=== PATIENT | male | born 1940 | race Caucasian/White ===

== ENCOUNTER 2017-05-03 16:36 | Emergency (ER) | payer OTHER ==
[~2017-05-03] VITALS: Ht 167.6 cm; Wt 81.7 kg
[~2017-05-03 16:36] MED LIST: ASPI81CH PO; CHOL10002 PO; DIVA500EC PO; Hydrocodone-Ap1 EA23 PO; INSUAS7030 SC; LEVFLO500 PO; LOSHYD PO; MEMA10 PO; METF500 PO; METO25ER PO; METPRE4DP PO; PARO10 PO; Percocet 5-3251 EACH PO; Simvastatin80 MG PO
[2017-05-03 17:09] LABS: BASOPHILS ABSOLUTE AUTO 0.04 K/mm3 (0.00-0.23); BASOPHILS PERCENT AUTO 0 % (0-2); EOSINOPHILS ABSOLUTE AUTO 0.04 K/mm3 (0.00-0.68); EOSINOPHILS PERCENT AUTO 0 % (0-6); Hematocrit 43.3 % (37.0-53.0); Hemoglobin 14.8 g/dL (13.5-17.5); IMMATURE GRAN ABSOLUTE AUTO 0.04 K/mm3 (0.00-0.10); IMMATURE GRAN PERCENT AUTO 0 % (0-1); LYMPHOCYTES ABSOLUTE AUTO 1.85 K/mm3 (0.84-5.20); LYMPHOCYTES PERCENT AUTO 16 % (21-46); MONOCYTES ABSOLUTE AUTO 1.16 K/mm3 (0.16-1.47); MONOCYTES PERCENT AUTO 10 % (4-13); Mean Corpuscular HGB 29.7 pg (26.0-34.0); Mean Corpuscular HGB Conc 34.2 g/dL (31.5-36.5); Mean Corpuscular Volume 87 fL (80-100); Mean Platelet Volume 11.7 fL (9.1-12.4); NEUTROPHILS ABSOLUTE AUTO 8.13 K/mm3 (1.96-9.15); NEUTROPHILS PERCENT AUTO 72 % (41-73); Platelet Count 184 K/mm3 (150-400); RDW Standard Deviation 38.2 fL (35.1-46.3); Red Blood Cell Count 4.98 M/mm3 (4.30-5.90); White Blood Cell Count 11.26 K/mm3 (4.00-11.30)
[2017-05-03 17:19] LABS: Alanine Aminotransfer (ALT/SGP 33 U/L (12-78); Albumin, Blood 4.2 g/dL (3.4-5.0); Alk Phos 132 U/L (50-136); Anion Gap 10 mmol/L (6-16); Aspartate Aminotrans (AST/SGOT 28 U/L (12-37); Bilirubin, Total 0.7 mg/dL (0.1-1.0); Blood Urea Nitrogen 29 mg/dL (8-24); Bun/Creatinine Ratio 24.4 (12.0-20.0); CO2, Blood 28 mmol/L (21-32); Calcium, Blood 10.2 mg/dL (8.5-10.1); Chloride, Blood 97 mmol/L (98-108); Creatinine, Blood 1.19 mg/dL (0.60-1.20); Ethanol (Alcohol), Blood, Med <3 mg/dL; Glomerular Filtration Rate >60 (60-); Glucose, Blood 424 mg/dL (70-99); Potassium, Blood 4.6 mmol/L (3.5-5.5); Sodium, Blood 135 mmol/L (136-145); Total Protein, Blood 8.2 g/dL (6.4-8.2)
[2017-05-03 17:20] LABS: International Normalized Ratio 1.05; Prothrombin Time Results 10.9 Sec (9.7-11.5)
[2017-05-03] MEDS ORDERED: GABA300 PO (17:45)
[2017-05-03] MEDS ORDERED: OLAN5 PO (17:46)
[2017-05-03] MEDS ORDERED: Omeprazole20 M1 (17:46)
== END 2017-05-03 20:03 | disposition home or self-care (01) ==
LOC: ER 16:36
PROVIDERS: Emergency Medicine
DX: S01.81XA Laceration without foreign body of other part of head, initial encounter (principal); G40.909 Epilepsy, unspecified, not intractable, without status epilepticus; F03.90 Unspecified dementia, unspecified severity, without behavioral disturbance, psychotic disturbance, mood disturbance, and anxiety; M54.2 Cervicalgia; M54.6 Pain in thoracic spine; E11.9 Type 2 diabetes mellitus without complications; Z88.8 Allergy status to other drugs, medicaments and biological substances; Z88.5 Allergy status to narcotic agent; Z88.7 Allergy status to serum and vaccine; Z79.899 Other long term (current) drug therapy; Z79.82 Long term (current) use of aspirin; Z79.4 Long term (current) use of insulin; Z87.891 Personal history of nicotine dependence; V43.62XA Car passenger injured in collision with other type car in traffic accident, initial encounter
CPT/HCPCS: 12011; 70450; 71260; 72125; 74177; 80053; 82947; 85025; 85610; 85730; 86850; 86900; 86901; 93005; 93010; 96360; 96361; 99284; G0480; J1815; J7030; Q9967

== ENCOUNTER 2017-05-05 02:02 | Observation (INO) | payer OTHER ==
[~2017-05-05] VITALS: Ht 167.6 cm; Wt 76.5 kg
[~2017-05-05 02:02] MED LIST changes: +GABA300 PO; +OLAN5 PO; +Omeprazole20 M1
[2017-05-05 02:15] LABS: BASOPHILS ABSOLUTE AUTO 0.02 K/mm3 (0.00-0.23); BASOPHILS PERCENT AUTO 0 % (0-2); EOSINOPHILS ABSOLUTE AUTO 0.11 K/mm3 (0.00-0.68); EOSINOPHILS PERCENT AUTO 1 % (0-6); Hematocrit 42.6 % (37.0-53.0); Hemoglobin 14.3 g/dL (13.5-17.5); IMMATURE GRAN ABSOLUTE AUTO 0.03 K/mm3 (0.00-0.10); IMMATURE GRAN PERCENT AUTO 0 % (0-1); LYMPHOCYTES ABSOLUTE AUTO 1.74 K/mm3 (0.84-5.20); LYMPHOCYTES PERCENT AUTO 22 % (21-46); MONOCYTES ABSOLUTE AUTO 0.96 K/mm3 (0.16-1.47); MONOCYTES PERCENT AUTO 12 % (4-13); Mean Corpuscular HGB 30.2 pg (26.0-34.0); Mean Corpuscular HGB Conc 33.6 g/dL (31.5-36.5); Mean Platelet Volume 11.6 fL (9.1-12.4); NEUTROPHILS ABSOLUTE AUTO 5.01 K/mm3 (1.96-9.15); NEUTROPHILS PERCENT AUTO 64 % (41-73); Platelet Count 152 K/mm3 (150-400); RDW Coefficient Variation 12.1 % (11.7-14.2); RDW Standard Deviation 39.5 fL (35.1-46.3); Red Blood Cell Count 4.74 M/mm3 (4.30-5.90); White Blood Cell Count 7.87 K/mm3 (4.00-11.30)
[2017-05-05 02:19] LABS: Mean Corpuscular Volume 90 fL (80-100)
[2017-05-05 02:29] LABS: PCO2 Arterial 44.1 mmHg (35-45); PO2 Arterial 59.2 mmHg (80-100); pH Blood Arterial 7.39 (7.35-7.45)
[2017-05-05 02:38] LABS: Alanine Aminotransfer (ALT/SGP 34 U/L (12-78); Albumin, Blood 3.5 g/dL (3.4-5.0); Alk Phos 101 U/L (50-136); Anion Gap 6 mmol/L (6-16); Aspartate Aminotrans (AST/SGOT 28 U/L (12-37); Bilirubin, Total 0.3 mg/dL (0.1-1.0); Blood Urea Nitrogen 41 mg/dL (8-24); Bun/Creatinine Ratio 28.9 (12.0-20.0); CO2, Blood 28 mmol/L (21-32); Calcium, Blood 9.1 mg/dL (8.5-10.1); Chloride, Blood 102 mmol/L (98-108); Creatinine, Blood 1.42 mg/dL (0.60-1.20); Ethanol (Alcohol), Blood, Med <3 mg/dL; Globulin, Blood 3.5 g/dL (2.2-4.0); Glomerular Filtration Rate 52 (60-); Glucose, Blood 358 mg/dL (70-99); Salicylate 2.5 mg/dL (2.8-20.0); Sodium, Blood 136 mmol/L (136-145)
[2017-05-05 02:39] LABS: Acetaminophen, Random <2.0 ug/mL (10.0-30.0)
[2017-05-05 02:41] LABS: Thyroid Stimulating Hormone 0.846 uIU/mL (0.360-4.800)
[2017-05-05] MEDS ORDERED: ASPI325 PO (04:18)
[2017-05-05] MEDS ORDERED: DIPH50 PO (04:19)
[2017-05-05] MEDS ORDERED: CHOL10002 PO (04:19)
[2017-05-05] MEDS ORDERED: GABA300 PO (04:20)
[2017-05-05] MEDS ORDERED: LOSARTAN-HCTZ1 EACH PO (04:21)
[2017-05-05] MEDS ORDERED: Lopressor 25 mg25 MG PO (04:22)
[2017-05-05] MEDS ORDERED: MEMA10 PO (04:22)
[2017-05-05] MEDS ORDERED: LIDO700A20 TOP (04:22)
[2017-05-05] MEDS ORDERED: METF500 PO (04:23)
[2017-05-05] MEDS ORDERED: NAPR550 PO (04:23)
[2017-05-05] MEDS ORDERED: OLAN5 PO (04:24)
[2017-05-05] MEDS ORDERED: Omeprazole20 M1 PO (04:24)
[2017-05-05] MEDS ORDERED: PARO20 PO (04:25)
[2017-05-05] MEDS ORDERED: [UNRECOGNIZED DRUG - OTHER] (04:26)
[2017-05-05] MEDS ORDERED: MENTHOL (04:26)
[2017-05-05] MEDS ORDERED: SIMV40 PO (04:27)
[2017-05-05] MEDS ORDERED: LEVE500 PO (04:28)
[2017-05-05 04:38] LABS: Source, Urine Clean Catch
[2017-05-05 04:44] LABS: Bilirubin, Urine Neg (Neg); Blood, Urine Neg (Neg); Glucose Qualitative, Urine 4+ (Neg); Ketones, Urine Neg (Neg); Leukocyte Esterase, Urine Neg (Neg); Nitrite, Urine Neg (Neg); Protein, Urine Neg (Neg); Specific Gravity, Urine 1.015 (1.003-1.022); Urobilinogen, Urine NORM (Normal)
[2017-05-05 04:46] LABS: Appearance, Urine Clear (Clear); Color, Urine Yellow (P-Yellow)
[2017-05-05 04:55] LABS: U Amphetamine Screen Not Detected; U Barbituate Screen Not Detected; U Benzodiazapine Screen Not Detected; U Buprenorphine Screen Not Detected; U Cannabinoids Screen Not Detected; U Cocaine Screen Not Detected; U Methadone Screen Not Detected; U Methamphetamine Screen Not Detected; U Opiates Screen DETECTED; U Oxycodone Screen Not Detected; U Phencyclidine Screen Not Detected; U Propoxyphene Screen Not Detected
[2017-05-05] MEDS ORDERED: Humulin N100 UNIT/1 SC (04:59)
[2017-05-06 06:02] LABS: BASOPHILS ABSOLUTE AUTO 0.02 K/mm3 (0.00-0.23); BASOPHILS PERCENT AUTO 0 % (0-2); EOSINOPHILS ABSOLUTE AUTO 0.09 K/mm3 (0.00-0.68); EOSINOPHILS PERCENT AUTO 1 % (0-6); Hematocrit 43.7 % (37.0-53.0); IMMATURE GRAN ABSOLUTE AUTO 0.03 K/mm3 (0.00-0.10); IMMATURE GRAN PERCENT AUTO 1 % (0-1); LYMPHOCYTES ABSOLUTE AUTO 1.78 K/mm3 (0.84-5.20); LYMPHOCYTES PERCENT AUTO 28 % (21-46); MONOCYTES ABSOLUTE AUTO 0.75 K/mm3 (0.16-1.47); MONOCYTES PERCENT AUTO 12 % (4-13); Mean Corpuscular HGB 30.2 pg (26.0-34.0); Mean Corpuscular HGB Conc 34.3 g/dL (31.5-36.5); Mean Corpuscular Volume 88 fL (80-100); Mean Platelet Volume 11.6 fL (9.1-12.4); NEUTROPHILS ABSOLUTE AUTO 3.75 K/mm3 (1.96-9.15); NEUTROPHILS PERCENT AUTO 58 % (41-73); Platelet Count 167 K/mm3 (150-400); RDW Coefficient Variation 12.1 % (11.7-14.2); RDW Standard Deviation 38.5 fL (35.1-46.3); Red Blood Cell Count 4.96 M/mm3 (4.30-5.90); White Blood Cell Count 6.42 K/mm3 (4.00-11.30)
[2017-05-06 06:31] LABS: Alanine Aminotransfer (ALT/SGP 33 U/L (12-78); Albumin, Blood 3.5 g/dL (3.4-5.0); Albumin/Globulin Ratio 0.9 (0.8-1.8); Alk Phos 82 U/L (50-136); Anion Gap 8 mmol/L (6-16); Aspartate Aminotrans (AST/SGOT 24 U/L (12-37); Bilirubin, Total 0.4 mg/dL (0.1-1.0); Blood Urea Nitrogen 31 mg/dL (8-24); Bun/Creatinine Ratio 29.8 (12.0-20.0); CHOL/HDL RATIO 4.7; CO2, Blood 25 mmol/L (21-32); Calcium, Blood 9.2 mg/dL (8.5-10.1); Chloride, Blood 104 mmol/L (98-108); Cholesterol 127 mg/dL (50-200); Creatinine, Blood 1.04 mg/dL (0.60-1.20); Globulin, Blood 3.7 g/dL (2.2-4.0); Glomerular Filtration Rate >60 (60-); Glucose, Blood 216 mg/dL (70-99); HDL Cholesterol 27 mg/dL (>39); LDL/HDL RATIO Unable to Calculate; Low Density Lipoprotein Chol Unable to Calculate mg/dL (0-110); Sodium, Blood 137 mmol/L (136-145); Total Protein, Blood 7.2 g/dL (6.4-8.2); Triglycerides 421 mg/dL (30-160); Very Low Density Lipoprot Chol Unable to Calculate mg/dL (6-32)
== END 2017-05-07 18:40 | disposition still patient (30) ==
LOC: ER 02:02 → PCU 02:03 → MEDS 02:03 → PCU 04:30 → MEDS 04:30 → ER 04:30 → PCU 04:40 → MEDS 15:47 → PCU 15:47 → MEDS 15:47
PROVIDERS: Emergency Medicine; Internal Medicine
DX: F03.90 Unspecified dementia, unspecified severity, without behavioral disturbance, psychotic disturbance, mood disturbance, and anxiety (principal); N17.9 Acute kidney failure, unspecified; I10 Essential (primary) hypertension; G93.40 Encephalopathy, unspecified; E11.9 Type 2 diabetes mellitus without complications; E86.0 Dehydration; F43.10 Post-traumatic stress disorder, unspecified; M79.7 Fibromyalgia; G40.909 Epilepsy, unspecified, not intractable, without status epilepticus; F91.8 Other conduct disorders; Z79.82 Long term (current) use of aspirin; Z87.442 Personal history of urinary calculi; Z79.899 Other long term (current) drug therapy; Z88.5 Allergy status to narcotic agent; Z88.8 Allergy status to other drugs, medicaments and biological substances; Z88.7 Allergy status to serum and vaccine; Z87.891 Personal history of nicotine dependence
CPT/HCPCS: 36415; 36600; 70450; 72125; 80053; 80061; 80177; 81003; 82607; 82746; 82803; 82947; 84443; 85025; 86592; 93005; 93010; 96372; 97165; 97530; 99285; G0378; G0480; G8987; G8988; G8989; J1650; J1815; J7030

== ENCOUNTER 2017-05-07 18:08 | Observation (INO) | payer OTHER ==
[~2017-05-07] VITALS: Ht 167.6 cm; Wt 81.7 kg
[~2017-05-07 18:08] MED LIST changes: +ASPI325 PO; +DIPH50 PO; +Humulin N100 UNIT/1 SC; +LEVE500 PO; +LIDO700A20 TOP; +LOSARTAN-HCTZ1 EACH PO; +Lopressor 25 mg25 MG PO; +MENTHOL; +NAPR550 PO; +Omeprazole20 M1 PO; +PARO20 PO; +SIMV40 PO; +[UNRECOGNIZED DRUG - OTHER]
== END 2017-05-09 12:29 | disposition home or self-care (01) ==
LOC: ER 18:08 → EOR 18:09
DX: G93.41 Metabolic encephalopathy (principal); F03.90 Unspecified dementia, unspecified severity, without behavioral disturbance, psychotic disturbance, mood disturbance, and anxiety; F43.10 Post-traumatic stress disorder, unspecified; F41.9 Anxiety disorder, unspecified; G40.909 Epilepsy, unspecified, not intractable, without status epilepticus; I10 Essential (primary) hypertension; E11.40 Type 2 diabetes mellitus with diabetic neuropathy, unspecified; E78.5 Hyperlipidemia, unspecified; Z79.82 Long term (current) use of aspirin; Z79.899 Other long term (current) drug therapy; Z79.2 Long term (current) use of antibiotics
CPT/HCPCS: 99285; G0378; J1815; Q0163

== ENCOUNTER 2020-04-19 13:08 | Emergency (ER) | payer OTHER ==
[~2020-04-19] VITALS: Ht 167.6 cm; Wt 77.1 kg
== END 2020-04-19 13:55 | disposition home or self-care (01) ==
LOC: ER 13:08
DX: E11.649 Type 2 diabetes mellitus with hypoglycemia without coma (principal); I10 Essential (primary) hypertension; Z79.82 Long term (current) use of aspirin; Z79.899 Other long term (current) drug therapy; Z79.84 Long term (current) use of oral hypoglycemic drugs; Z88.5 Allergy status to narcotic agent; Z88.8 Allergy status to other drugs, medicaments and biological substances; Z88.7 Allergy status to serum and vaccine; Z87.442 Personal history of urinary calculi; Z87.891 Personal history of nicotine dependence
CPT/HCPCS: 82947; 99283

== ENCOUNTER 2020-05-21 12:43 | Emergency (ER) | payer OTHER ==
[~2020-05-21] VITALS: Ht 162.6 cm; Wt 77.1 kg
[2020-05-21] MEDS ORDERED: AMOCLA875 PO (13:06)
== END 2020-05-21 13:25 | disposition home or self-care (01) ==
LOC: ER 12:43
DX: S61.250A Open bite of right index finger without damage to nail, initial encounter (principal); L08.9 Local infection of the skin and subcutaneous tissue, unspecified; Z79.82 Long term (current) use of aspirin; Z79.84 Long term (current) use of oral hypoglycemic drugs; Z79.899 Other long term (current) drug therapy; W55.01XA Bitten by cat, initial encounter
CPT/HCPCS: 99283; A9270

== ENCOUNTER 2020-05-25 13:12 | Emergency (ER) | payer OTHER ==
[~2020-05-25] VITALS: Ht 165.1 cm; Wt 77.1 kg
[~2020-05-25 13:12] MED LIST changes: +AMOCLA875 PO
[2020-05-25] MEDS ORDERED: Monodox100 MG PO (15:28)
== END 2020-05-25 15:35 | disposition home or self-care (01) ==
LOC: ER 13:12
DX: S61.250A Open bite of right index finger without damage to nail, initial encounter (principal); L08.9 Local infection of the skin and subcutaneous tissue, unspecified; E11.9 Type 2 diabetes mellitus without complications; I10 Essential (primary) hypertension; G40.909 Epilepsy, unspecified, not intractable, without status epilepticus; Z88.5 Allergy status to narcotic agent; Z88.7 Allergy status to serum and vaccine; Z79.899 Other long term (current) drug therapy; Z79.82 Long term (current) use of aspirin; Z87.891 Personal history of nicotine dependence; W55.01XA Bitten by cat, initial encounter
CPT/HCPCS: 73140; 87070; 87075; 87205; 99282-25

== ENCOUNTER 2021-08-13 11:07 | Inpatient (IN) | payer OTHER ==
[~2021-08-13] VITALS: Ht 172.7 cm; Wt 58.5 kg
[~2021-08-13 11:07] MED LIST changes: +Monodox100 MG PO
[2021-08-13 11:56] LABS: Hemoglobin 16.7 g/dL (13.5-17.5); Mean Corpuscular HGB 30.6 pg (26.0-34.0); Mean Corpuscular HGB Conc 29.5 g/dL (31.5-36.5); Mean Corpuscular Volume 104 fL (80-100); Mean Platelet Volume 12.5 fL (9.1-12.4); Platelet Count 331 K/mm3 (150-400); RDW Standard Deviation 50.4 fL (35.1-46.3); Red Blood Cell Count 5.45 M/mm3 (4.30-5.90); White Blood Cell Count 25.61 K/mm3 (4.00-11.30)
[2021-08-13 12:00] LABS: Hematocrit 56.6 % (37.0-53.0)
[2021-08-13 12:15] LABS: Beta HCG, Quantitative, Serum <1 mIU/mL (0-1); Ethanol (Alcohol), Blood, Med <3 mg/dL
[2021-08-13 12:21] LABS: BAND PERCENT MAN 1 % (0-8); BASOPHILS PERCENT MAN 0 % (0-2); EOSINOPHILS PERCENT MAN 0 % (0-6); LYMPHOCYTES ABSOLUTE MAN 7.42 K/mm3 (0.84-5.20); LYMPHOCYTES PERCENT MAN 29 % (21-46); MONOCYTES ABSOLUTE MAN 3.84 K/mm3 (0.16-1.47); MONOCYTES PERCENT MAN 15 % (4-13); NEUTROPHILS ABSOLUTE MAN 14.34 K/mm3 (1.96-9.15); SEG NEUTROPHILS PERCENT MAN 55 % (41-73); TOTAL CELLS COUNTED 100
[2021-08-13 12:28] LABS: Alanine Aminotransfer (ALT/SGP 24 U/L (12-78); Albumin, Blood 3.8 g/dL (3.4-5.0); Albumin/Globulin Ratio 1.1 (0.8-1.8); Alk Phos 73 U/L (50-136); Anion Gap 44 mmol/L (6-16); Aspartate Aminotrans (AST/SGOT 31 U/L (12-37); Bilirubin, Total 0.3 mg/dL (0.1-1.0); Blood Urea Nitrogen 86 mg/dL (8-24); Bun/Creatinine Ratio 18.8 (12.0-20.0); CO2, Blood 2 mmol/L (21-32); Calcium, Blood 11.6 mg/dL (8.5-10.1); Chloride, Blood 95 mmol/L (98-108); Creatinine, Blood 4.58 mg/dL (0.60-1.20); Globulin, Blood 3.6 g/dL (2.2-4.0); Glomerular Filtration Rate 12 (60-); Glucose, Blood 267 mg/dL (70-99); Potassium, Blood 5.1 mmol/L (3.5-5.5); Sodium, Blood 141 mmol/L (136-145); Total Protein, Blood 7.4 g/dL (6.4-8.2)
[2021-08-13 12:48] LABS: Source, Urine Straight Cath
[2021-08-13 13:20] LABS: Appearance, Urine Hazy (Clear); Bilirubin, Urine Neg (Neg); Blood, Urine 3+ (Neg); Color, Urine Yellow (P-Yellow); Glucose Qualitative, Urine 3+ (Neg); Ketones, Urine 2+ (Neg); Leukocyte Esterase, Urine Neg (Neg); Nitrite, Urine Neg (Neg); Protein, Urine 2+ (Neg); Urobilinogen, Urine NORM (Normal)
[2021-08-13 13:32] LABS: U Amphetamine Screen Not Detected; U Barbituate Screen Not Detected; U Benzodiazapine Screen Not Detected; U Buprenorphine Screen Not Detected; U Cannabinoids Screen Not Detected; U Cocaine Screen Not Detected; U Methadone Screen Not Detected; U Methamphetamine Screen Not Detected; U Opiates Screen Not Detected; U Oxycodone Screen Not Detected; U Phencyclidine Screen Not Detected; U Propoxyphene Screen Not Detected
[2021-08-13 13:35] LABS: Red Blood Cells, Urine 0-2 /hpf (0-2); White Blood Cells, Urine 0-2 /hpf (0-5)
[2021-08-13 13:36] LABS: Bacteria Few /hpf; Squamous Epithelial Cells Few /hpf (Few)
[2021-08-13 13:36] LABS: PCO2 Venous 26.1 mmHg (38-42); PO2 Venous 188 mmHg (38-42)
[2021-08-13 13:37] LABS: pH Blood Venous <6.80 (7.34-7.37)
[2021-08-13 13:38] LABS: Base Excess Venous -34.2 mmol/L; Bicarbonate Venous 4.9 mmol/L (24.0-30.0)
[2021-08-13 14:04] LABS: Source, Urine Foley catheter
[2021-08-13 14:12] LABS: Appearance, Urine Clear (Clear); Bilirubin, Urine Neg (Neg); Blood, Urine 3+ (Neg); Color, Urine Yellow (P-Yellow); Glucose Qualitative, Urine 3+ (Neg); Ketones, Urine 2+ (Neg); Leukocyte Esterase, Urine Neg (Neg); Nitrite, Urine Neg (Neg); Protein, Urine 2+ (Neg); Urobilinogen, Urine NORM (Normal)
[2021-08-13 14:35] LABS: Bacteria Rare /hpf; Squamous Epithelial Cells Rare /hpf (Few); Transitional Epithelial Cells Rare /hpf (0-Rare)
[2021-08-13 14:36] LABS: Renal Epithelial Few /hpf (0-Rare); Spermatozoa Mod /hpf
[2021-08-13 16:19] LABS: International Normalized Ratio 1.8; Prothrombin Time Results 18.2 Sec (9.7-11.5)
[2021-08-13 16:27] LABS: Source, Urine Straight Cath
[2021-08-13 16:34] LABS: Appearance, Urine Hazy (Clear); Bilirubin, Urine Neg (Neg); Blood, Urine 2+ (Neg); Color, Urine Yellow (P-Yellow); Glucose Qualitative, Urine 3+ (Neg); Ketones, Urine 2+ (Neg); Leukocyte Esterase, Urine Neg (Neg); Nitrite, Urine Neg (Neg); Protein, Urine 2+ (Neg); Urobilinogen, Urine NORM (Normal)
[2021-08-13 16:50] LABS: Red Blood Cells, Urine 0-2 /hpf (0-2); Squamous Epithelial Cells Rare /hpf (Few)
[2021-08-13 16:52] LABS: Bacteria Rare /hpf; Renal Epithelial Few /hpf (0-Rare); Spermatozoa Mod /hpf
[2021-08-13 16:53] LABS: Transitional Epithelial Cells Rare /hpf (0-Rare); White Blood Cells, Urine 0-2 /hpf (0-5)
[2021-08-13 17:28] LABS: Influenza A, PCR NEGATIVE (NEGATIVE); Influenza B, PCR NEGATIVE (NEGATIVE); Resp Syncytial Virus, PCR NEGATIVE (NEGATIVE); SARS-Cov-2 (COVID-19) PCR, MMC NEGATIVE (NEGATIVE)
[2021-08-13 17:29] LABS: Bun/Creatinine Ratio 18.8 (12.0-20.0); Calcium, Blood 11.2 mg/dL (8.5-10.1); Creatinine, Blood 4.8 mg/dL (0.60-1.20); Potassium, Blood 5.8 mmol/L (3.5-5.5)
--- NOTE | 2021-08-13 18:00 | NUR ---
ARRIVAL FROM ER PATIENT ARRIVED FROM ER AROUND 1609. PATIENT GUPPY BREATHING UPON ARRIVING. CODE CALLED IMMEDIATELY AT 1610. PULSE PRESENT. PATIENT BEGAN BEING BAGGED. DR. HYATT TO ROOM. BACK MAKER STARTED HOOKING UP CORDS TO ALLOW SIGHT OF VITAL SIGNS. LEVOPHED INFUSING AT 30 MCG/ MINUTE. 1617 VASOPRESSIN STARTED. 1618 NON-REBREATHER PLACED. ALLOWING PATIENT'S BLOOD PRESSURE TO COME UP BEFORE SEDATING FOR INTUBATION. 1629 50 MG PROPOFOL GIVEN. 1632 40 MG JUAN J GIVEN. 1633 PATIENT INTUBATED WITH 7.5 TUBE, 25 AT TEETH. POSITIVE COLOR CHANGE. 1642 CUFF LEAKING; TUBE EXCHANGED FOR NEW. PATIENT INTUBATED AND SEDATED AT THIS TIME. RUBEN HUGGER IN PLACE. PATIENT HYPOTHERMIC WHEN ARRIVED. CORE TEMP CURRENTLY 93.4 DEGREES FAHRENHEIT. NO SIGNS OF PAIN NOTED. ETT 7.5 AND PULLED OUT [address] HYATT, THEREFORE NOW AT 24 CM AT UPPER LIP. VENT SETTINGS AC 24, TV 400, 5 AND 100% FIO2. LUNGS CLEAR THROUGHOUT. PATIENT IN SR WITH FIRST DEGREE BLOCK. HR 60S TO 70S. SBP 130S TO 140S. OG PLACED AND IS TO LIS- BLACK/ RED LIQUID DRAINING. JORDAN IN PLACE DRAINING MINIMAL AMOUNT OF YELLOW URINE. SCATTERED SCABS AND ABRASIONS NOTED. PROPOFOL AT 15 MCG/ KG/ MINUTE, LEVOPHED AT 12 MCG/ MINUTE, INSULIN DRIP AT 6 UNITS/ HOUR, BICARB IN D5 AT 150 MLS/ HOUR, PROTONIX AT 10 MLS/ HOUR, VASOPRESSIN AT 0.04 UNITS/ MINUTE. COVID SWAB AND UA SENT TO LAB. EKG PERFORMED. 2 L LR BOLUS GIVEN. CEFEPIME, VANCO, AND KEPPRA GIVEN. BLOOD SUGARS Q1H. CALLED WHEN PATIENT ARRIVED TO UNIT AND CODE CALLED. CAME IN AND SAT WITH PATIENT AND UPDATED BY DR. HYATT. RECENTLY LEFT. BED LOW. WILL GIVE REPORT TO ONCOMING CLINICAL SERVICES SPECIALIST NURSE SHORTLY.
--- NOTE | 2021-08-13 19:30 | NUR ---
ASSUMED CARE PT. UNRESPONSIVE TO STIMULI AT THIS TIME, CURRENTLY ON 15MCG/KG/ MIN OF PROPFOL. PUPILS ARE REACTIVE TO LIGHT, SLUGGISH. NO COUGH OR GAG AT THIS TIME. PT REMAINS ON VENT AC 24, TV 450, FIO2 30%, AND PEEP 5. PT. RR 29 UPON ASSESSMENT. LS CLEAR, MINIMAL SECREATIONS. PT HYPOTENSIVE, LEVOPHED GTT TITRATED UP TO 20MCG UPON ASSESSMENT. VASOPRESSIN ALSO INFUSING. PT. HAS OG IN PLACE TO LIS, WITH BROWN COFFEE GROUND SECRETIONS. ABD SOFT. LIQUID STOOL NOTED, RECTAL TUBE PLACED, LARGE VOLUME OF LIQUID BROWN COFFEE GROUND STOOL OUT. SPECIMEN SENT TO LAB. JORDAN IN PLACE, DRAINING VERY MINIMAL AMOUNT OF YELLOW CLOUDY URINE. PT. HAS BEARHUGGER IN PLACE, TEMP 95.2.
--- NOTE | 2021-08-13 20:00 | NUR ---
CONTINUED HYPOTENSION, EPI ORDERED AND STARTED ALONG WITH SOLU-CORTEF. DR HYATT NOTIFIED OF STOOL OUTPUT.
[2021-08-13 21:02] LABS: PCO2 Venous 28.4 mmHg (38-42); PO2 Venous 122 mmHg (38-42)
[2021-08-13 21:03] LABS: Base Excess Venous -32.7 mmol/L; Bicarbonate Venous 4.8 mmol/L (24.0-30.0); pH Blood Venous <6.80 (7.34-7.37)
[2021-08-13 21:22] LABS: Bun/Creatinine Ratio 18.5 (12.0-20.0); Calcium, Blood 9.8 mg/dL (8.5-10.1); Creatinine, Blood 4.54 mg/dL (0.60-1.20); Potassium, Blood 6.2 mmol/L (3.5-5.5)
--- NOTE | 2021-08-13 21:38 | NUR ---
CALL TO DR. HYATT WITH WORSENING LABS 2 AMPS OF BICARB PUSHED AND 2L LR BOLUS STARTED.
--- NOTE | 2021-08-13 22:48 | NUR ---
PT DAUGHTER UPDATED ON PT CONDITION.
[2021-08-13 22:59] LABS: Bicarbonate Venous 4.8 mmol/L (24.0-30.0); PCO2 Venous 29.5 mmHg (38-42); PO2 Venous 100 mmHg (38-42); pH Blood Venous <6.80 (7.34-7.37)
[2021-08-13 23:24] LABS: Adenovirus F 40/41 Not Detected (NOT DETECT); Astrovirus Not Detected (NOT DETECT); Campylobacter Sp Not Detected (NOT DETECT); Cryptosporidium Not Detected (NOT DETECT); Cyclospora Cayetanensis Not Detected (NOT DETECT); E. Coli O157 Not Detected (NOT DETECT); Entamoeba Histolytica Not Detected (NOT DETECT); Enteroaggregative E. coli-EAEC Not Detected (NOT DETECT); Enteropathogenic E. coli-EPEC Not Detected (NOT DETECT); Enterotoxigenic E. coli-ETEC Not Detected (NOT DETECT); Giardia Lamblia Not Detected (NOT DETECT); Norovirus GI/GII Not Detected (NOT DETECT); Plesiomonas Shigelloides Not Detected (NOT DETECT); Rotavirus A Not Detected (NOT DETECT); Salmonella Sp Not Detected (NOT DETECT); Sapovirus Not Detected (NOT DETECT); Shiga Toxin-prod E. coli-STEC Not Detected (NOT DETECT); Shigella/Enteroin E. coli-EIEC Not Detected (NOT DETECT); Vibrio Cholerae Not Detected (NOT DETECT); Vibrio Sp Not Detected (NOT DETECT); Yersinia Enterocolitica Not Detected (NOT DETECT)
[2021-08-14 03:28] LABS: PCO2 Venous 24.2 mmHg (38-42); pH Blood Venous <6.80 (7.34-7.37)
[2021-08-14 03:29] LABS: Base Excess Venous -33.5 mmol/L; Bicarbonate Venous 4.3 mmol/L (24.0-30.0)
[2021-08-14 03:30] LABS: Hemoglobin 13.1 g/dL (13.5-17.5); Mean Corpuscular HGB 30.5 pg (26.0-34.0); Mean Corpuscular HGB Conc 29.1 g/dL (31.5-36.5); Mean Corpuscular Volume 105 fL (80-100); Mean Platelet Volume 12.4 fL (9.1-12.4); Platelet Count 226 K/mm3 (150-400); RDW Coefficient Variation 13.4 % (11.7-14.2); RDW Standard Deviation 52.5 fL (35.1-46.3); White Blood Cell Count 22.35 K/mm3 (4.00-11.30)
[2021-08-14 03:51] LABS: BAND PERCENT MAN 4 % (0-8); BASOPHILS ABSOLUTE MAN 0.22 K/mm3 (0.00-0.23); BASOPHILS PERCENT MAN 1 % (0-2); EOSINOPHILS ABSOLUTE MAN 0.22 K/mm3 (0.00-0.68); EOSINOPHILS PERCENT MAN 1 % (0-6); LYMPHOCYTES ABSOLUTE MAN 2.45 K/mm3 (0.84-5.20); LYMPHOCYTES PERCENT MAN 11 % (21-46); METAMYELOCYTE ABSOLUTE MAN 0.22 K/mm3 (0.00-0.00); METAMYELOCYTE PERCENT MAN 1 % (0-0); MONOCYTES ABSOLUTE MAN 0.89 K/mm3 (0.16-1.47); MONOCYTES PERCENT MAN 4 % (4-13); MYELOCYTE ABSOLUTE MAN 0.22 K/mm3 (0.00-0.00); MYELOCYTE PERCENT MAN 1 % (0-0); SEG NEUTROPHILS PERCENT MAN 77 % (41-73); TOTAL CELLS COUNTED 100
--- NOTE | 2021-08-14 03:58 | NUR ---
UPDATE PT CONTINUES ON LEVOPHED AT 30MCG/MIN, VASOPRESSIN AT 0.04U, AND EPI AT 8MCG/MIN. INSULIN INCREASD TO 14U AT THIS TIME. PT. CONTINUES TO HAVE FOUL SMELLING LIQUID STOOL IN RECTAL TUBE. REMAINS UNRESPONSIVE WITH NON COUGH OR GAG AT THIS TIME. NO SPONT MOVEMENT NOTED. PT. AT BEDSIDE.
[2021-08-14 03:59] LABS: Alanine Aminotransfer (ALT/SGP 43 U/L (12-78); Albumin, Blood 2.4 g/dL (3.4-5.0); Albumin/Globulin Ratio 1.2 (0.8-1.8); Alk Phos 58 U/L (50-136); Anion Gap 44 mmol/L (6-16); Aspartate Aminotrans (AST/SGOT 127 U/L (12-37); Bilirubin, Total 0.3 mg/dL (0.1-1.0); Blood Urea Nitrogen 76 mg/dL (8-24); Bun/Creatinine Ratio 16.8 (12.0-20.0); CO2, Blood 3 mmol/L (21-32); Calcium, Blood 8.6 mg/dL (8.5-10.1); Chloride, Blood 89 mmol/L (98-108); Creatinine, Blood 4.53 mg/dL (0.60-1.20); Glomerular Filtration Rate 12 (60-); Glucose, Blood 349 mg/dL (70-99); Phosphorus, Blood 10.2 mg/dL (2.5-4.9); Sodium, Blood 136 mmol/L (136-145); Vancomycin, Random 12.7 ug/mL
[2021-08-14 04:00] LABS: Total Protein, Blood 4.4 g/dL (6.4-8.2)
--- NOTE | 2021-08-14 06:31 | NUR ---
SHIFT SUMMARY PT REMAINS UNRESPONSIVE TO STIMULI. PT. REMAINS ON VASOPRESSORS, EPINEPHRINE GTT 8MCG/MIN, LEVOPHED AT 30 MCG/MIN, AND VASOPRESSIN 0.04U/HR. INSULIN TITRATED UP TO 28U/HR THIS SHIFT. PT CONTINUES TO HAVE LIQUID BROWN COFFEE GROUND STOOL AND FLUID FROM OG. MINIMAL URINE OUTPUT OF 60CC THIS SHIFT. RUBEN HUGGER IN PLACE FOR DECREASED TEMP. FAMILY AT BEDSIDE REPORT TO EMMANUEL KAUR
--- NOTE | 2021-08-14 10:43 | NUR ---
Spoke with Primary RN Dr Ganesh Kessler and discussed case. Pt currently intubated and on 3 pressors. Pt's prognosis is guarded. Pt resting in bed, intubated and sedated. Pt's spouse Tamika and daughter Rashida at bedside. Offered supportive visit, reviewed plan of care, and answered questions. Family agreeable with continued PC visits. Palliative Care will remain available.
[2021-08-14 10:44] LABS: PCO2 Venous 23.3 mmHg (38-42); PO2 Venous 160 mmHg (38-42); pH Blood Venous <6.80 (7.34-7.37)
[2021-08-14 10:45] LABS: Base Excess Venous -32.4 mmol/L; Bicarbonate Venous 4.4 mmol/L (24.0-30.0)
--- NOTE | 2021-08-14 11:31 | NUR ---
PT INTUBATED AND SEDATED WITH PROPOFOL. NO RESPONSE TO NOXIOUS STIMULI. NO PUPIL RESPONSE OR SPONT MOVEMENT OF EXTREMITIES. NO COUGH OR GAG. ON LEVOPHED, EPI GTT, AND VASOPRESSIN. ON INSULIN GTT. SEE FLOWSHEET FOR TITRATIONS. LABS ARE NOT IMPROVING. DAUGHTER AND AT BEDSIDE HAVE DECIDED TO TRY DIALYSIS. DR. HYATT WILL PLACE DIALYSIS CATH SOON. DR. LEY CONSULTED FOR SEVERE ACIDOSIS. COULD NOT HEAR BT'S THIS AM. RECTAL TUBE PUTTING OUT BROWN LIQUID/COFFEE GROUND WITH VERY FOUL ODOR. DR. HYATT AWARE. OG HAS SAME LOOKING OUTPUT. FAMILY REMAINS AT BEDSIDE.
--- NOTE | 2021-08-14 15:37 | NUR ---
DR. HYATT PLACED TRIALYSIS CATH TO [facility]. PT STARTED ON DIALYSIS. AND DAUGHTER AT BEDSIDE CHANGED CODE STATUS TO FULL CODE AFTER DISCUSSION WITH DR. HYATT. TITRATING PRESSORS DURING DIALYSIS. PT STILL UNRESPONSIVE.
--- NOTE | 2021-08-14 18:04 | NUR ---
SUMMARY PT INTUBATED AND SEDATED WITH PROPOFOL. NO RESPONSE TO NOXIOUS STIMULI, NO PUPIL RESPONSE, NO SPONT MOVEMENT OF EXTREMITIES. PROPOFOL ON DUE TO RESP RATE INCREASING WHEN IT IS OFF. PT GOT DIALYSIS CATH TO [facility] TODAY AND HAD DIALYSIS THAT LASTED ABOUT 2 HRS. PT BECAME HYPOTENSIVE AND EPI WAS TITRATED HIGH 25MCG/MIN PER DR. HYATT. SEE FLOWSHEET FOR ALL TITRATIONS. GLUCOSE DROPPED DRASTICALLY WITH DIALYSIS BUT NOW THAT DIALYSIS IS DONE GLUCOSE RISING QUICKLY. CONTACTED PHARMACY TO TRY TO GET SOME GTTS CHANGED FROM D5 TO NS AND TO CONCENTRATE SOME OF THE PRESSORS. TEMP DROPPED DURING DIALYSIS, RUBEN LOWERY ON NOW.
--- NOTE | 2021-08-14 19:00 | NUR ---
Assumed care. Report received from tay KAUR. Pt in bed, sedated and ventilated via ETT. Vent settings: 24/450/5/35%. Pt has R/IJ central line in place, L/fem trialysis catheter, L/arm IV access. IV pumps running: Epi 18 mcg/min, Levo 30 mcg/min, Vasopressin 0.04 u/min, Insulin 5 units/hr, Propofol 5 mcg/kg/min, Protonix 10 ml/hr, NS tko 10 ml/hr, D5/bicarb 150 ml/hr. Phillips catheter in place, Rectal tube in place. Pt family at bedside currently, will continue to monitor.
[2021-08-14 20:04] LABS: Base Excess Venous -29.4 mmol/L; Bicarbonate Venous 5.7 mmol/L (24.0-30.0); PCO2 Venous 24.7 mmHg (38-42); PO2 Venous 136 mmHg (38-42)
[2021-08-14 20:05] LABS: pH Blood Venous 6.85 (7.34-7.37)
[2021-08-14 20:20] LABS: Salicylate 1.9 mg/dL (2.8-20.0)
[2021-08-14 20:22] LABS: Osmolality, Serum 298 mos/KG (275-300)
[2021-08-14 20:38] LABS: Acetaminophen, Random 7.3 ug/mL (10.0-30.0); Alanine Aminotransfer (ALT/SGP 55 U/L (12-78); Albumin, Blood 2.3 g/dL (3.4-5.0); Albumin/Globulin Ratio 1.4 (0.8-1.8); Alk Phos 57 U/L (50-136); Aspartate Aminotrans (AST/SGOT 202 U/L (12-37); Bilirubin, Total 0.4 mg/dL (0.1-1.0); Blood Urea Nitrogen 42 mg/dL (8-24); Bun/Creatinine Ratio 12.4 (12.0-20.0); CO2, Blood 5 mmol/L (21-32); Calcium, Blood 6.7 mg/dL (8.5-10.1); Chloride, Blood 79 mmol/L (98-108); Creatinine, Blood 3.38 mg/dL (0.60-1.20); Globulin, Blood 1.6 g/dL (2.2-4.0); Glomerular Filtration Rate 18 (60-); Glucose, Blood 390 mg/dL (70-99); Potassium, Blood 3.8 mmol/L (3.5-5.5); Total Protein, Blood 3.9 g/dL (6.4-8.2)
[2021-08-14 20:44] LABS: Anion Gap 40 mmol/L (6-16); Phosphorus, Blood 6.7 mg/dL (2.5-4.9); Sodium, Blood 124 mmol/L (136-145)
[2021-08-15 04:10] LABS: BASOPHILS ABSOLUTE AUTO 0.03 K/mm3 (0.00-0.23); BASOPHILS PERCENT AUTO 0 % (0-2); EOSINOPHILS PERCENT AUTO 0 % (0-6); Hemoglobin 11.6 g/dL (13.5-17.5); IMMATURE GRAN ABSOLUTE AUTO 0.27 K/mm3 (0.00-0.10); IMMATURE GRAN PERCENT AUTO 2 % (0-1); LYMPHOCYTES ABSOLUTE AUTO 3.02 K/mm3 (0.84-5.20); LYMPHOCYTES PERCENT AUTO 19 % (21-46); MONOCYTES ABSOLUTE AUTO 2.32 K/mm3 (0.16-1.47); MONOCYTES PERCENT AUTO 15 % (4-13); Mean Corpuscular HGB Conc 31.4 g/dL (31.5-36.5); Mean Platelet Volume 12.4 fL (9.1-12.4); NEUTROPHILS PERCENT AUTO 64 % (41-73); NRBC ABSOLUTE 0.16 K/mm3 (0.00-0.02); Platelet Count 145 K/mm3 (150-400); RDW Coefficient Variation 13.7 % (11.7-14.2); RDW Standard Deviation 48.4 fL (35.1-46.3); Red Blood Cell Count 3.87 M/mm3 (4.30-5.90); White Blood Cell Count 15.64 K/mm3 (4.00-11.30)
[2021-08-15 04:13] LABS: Mean Corpuscular Volume 96 fL (80-100)
[2021-08-15 04:32] LABS: Magnesium, Blood 1.3 mg/dL (1.6-2.4)
[2021-08-15 04:34] LABS: Albumin, Blood 2.2 g/dL (3.4-5.0); Anion Gap 44 mmol/L (6-16); Blood Urea Nitrogen 44 mg/dL (8-24); Bun/Creatinine Ratio 11.5 (12.0-20.0); CO2, Blood 6 mmol/L (21-32); Calcium, Blood 6.7 mg/dL (8.5-10.1); Chloride, Blood 78 mmol/L (98-108); Creatinine, Blood 3.84 mg/dL (0.60-1.20); Glomerular Filtration Rate 15 (60-); Glucose, Blood 180 mg/dL (70-99); Phosphorus, Blood 6.5 mg/dL (2.5-4.9); Potassium, Blood 3.4 mmol/L (3.5-5.5); Sodium, Blood 128 mmol/L (136-145); Vancomycin, Random 17.1 ug/mL
--- NOTE | 2021-08-15 06:38 | NUR ---
SHIFT SUMMARY. FAMILY AT BEDSIDE. PT IN BED, ON VENTILATOR. CURRENT VENT SETTINGS: AC/VC 24/450/5/80%. IV PUMPS RUNNING EPI 30 MCG/MIN, LEVOPHED 30 MCG/MIN, VASOPRESSIN 0.04 U/MIN, INSULIN 3 U/HR, D5/BICARB 200 ML/HR, NS TKO 10 ML/HR. JORDAN CATHETER IN PLACE, 10 MLS OUT THIS SHIFT. RECTAL TUBE IN PLACE. EPI TITRATED UP FROM 18-30 MCG/MIN DURING SHIFT FOR DECLINE IN B/P. AFTER CONVERSATION WITH DR. HYATT ON THE PHONE AND FAMILY IN ROOM ABOUT PT PROGNOSIS, FAMILY DECIDED TO CHANGE CODE STATUS TO DNR. DR. LEY NOTIFIED WITH EVENING AND AM LABS, SEE EMAR FOR ORDERS. SEE ASSESSMENT FOR FURTHER DETAILS, WILL CONTINUE TO MONITOR AND REPORT OFF TO DAYSHIFT RN.
--- NOTE | 2021-08-15 07:00 | NUR ---
ASSUME CARE: I have assumed care of this patient.
[2021-08-15 08:34] LABS: Vancomycin, Random 16.4 ug/mL
--- NOTE | 2021-08-15 09:32 | NUR ---
DIALYSIS SPOKE TO PT'S FAMILY ABOUT PT'S BP PROBABLY DROPPING DURING TX. DR HERNÁNDEZ SPOKE TO THE FAMILY. THE FAMILY DECIDED TO WAIT ON DIALYSIS UNTIL THERE IS AN IMPROVEMENT IN IN PT'S BP.
--- NOTE | 2021-08-15 13:16 | NUR ---
Pt resting in bed, intubated and sedated. Pt's spouse Tamika and daughter Rashida at bedside. Provided udate and engaged in therapeutic conversation regarding goals of care. Discussed considering comfort care. Offered therapeutic listening and answered questions. Family reports they will consider options. Family expresses appreciation and reports no other concerns at this time. Spoke with Primary RN Lourdes and discussed case. Palliative Care will remain available.
--- NOTE | 2021-08-15 18:02 | NUR ---
CODE STATUS UPDATE: Pt's family requesting to change pt from DNR back to full code. RN explained that pt would likely not recover if he coded due to his current medical status. Provider called and notified. Palliative care RN called to come see family
--- NOTE | 2021-08-15 18:13 | NUR ---
PALLIATIVE CARE: Palliative care RN at bedside talking with family.
--- NOTE | 2021-08-15 18:39 | NUR ---
SHIFT SUMMARY: Little progress today. Vaso pressors maxed with SBP in 60s with MAP in 40s. Propofol stopped with no change in neurologic status; no gag, no cough, no pupillary change, no corneal. Insulin also stopped at blood sugars have stabilized in the 90-100's. No urine output today. Bicarb running at 150 mls/hr. Dialysis was withheld as BP would not tolerate. Pt edematous throughout with progressive skin blistering and weaping. Palliative care has been in with patient's family several times to discuss possible comfort care. and daughter have requested to change pt from DNR back to full code. Palliative care currently discussing topic with family. Will pass on to oncoming shift.
--- NOTE | 2021-08-15 19:00 | NUR ---
ASSUMED CARE. REPORT RECEIVED FROM TOMY KAUR. PT CONTINUES ON VENTED VIA ETT. VENT SETTINGS: AC/VC 24/450/5/80%. OG TUBE IN PLACE, TO LOW INTERMITTENT SUCTION. R/IJ CENTRAL LINE, L/FEM TRIALYSIS CATH, L/AC IV ACCESS, ALL IN PLACE, IV PUMP SETTINGS: EPI 30 MCG/MIN, LEVOPHED 30 MCG/MIN, VASOPRESSIN 0.04 UNITS/MIN, D5/BICARB 150 ML/HR, PROTONIX 10 ML/HR, NS TKO 10 ML/HR. JORDAN CATHETER IN PLACE, RECTAL TUBE IN PLACE. WILL CONTINUE TO MONITOR.
--- NOTE | 2021-08-15 19:39 | NUR ---
Received a call from Gabrielle bedside RN this evening. She reports the pt's daughter and have now requested pt be placed back to full code. They were agreeable to visit with me, and I gently asked what had changed for them this evening, they state Rashida's (pt's son in law) had told them they should request CPR again, that they shouldn't "give up on him". At pt's and daughter's request, I remained with them and answered their questions about the need vs no need for sedation, discussed why/how pressors are used, airway support, etc. Initially, pt's daughter Rashida placed her on speaker phone, where he told me he had gone to medical school, but didn't finish and doesn't approve of or appreciate [employer]. He didn't stay in the conversation long, stated he needed to tend to their young child, and hung up. Rashida began to cry, and stated she is "just overwhelmed, and exhausted", and she needs to think about all of this. In the meantime, she states she does still request CPR for the pt if his heart stopped for now, and she left the hospital for a break. Pt's remained present and has returned to pt's room. I reassured Rashida this will be done as she requests, and informed ICU charge and bedside RN of the conversation and current wishes by family. They v/u.
--- NOTE | 2021-08-15 21:00 | NUR ---
CODE STATUS. AT BEDSIDE, DISCUSSED HER FAMILY'S WISHES WITH REGARD TO THE PATIENT'S CODE STATUS. FAMILY HAS BEEN IN CONVERSATION WITH PALLIATIVE CARE, THEY HAVE DECIDED TO CHANGE THE CODE STATUS FROM DNR BACK TO FULL CODE. DR. CROCKER NOTIFIED AND ORDER OBTAINED FOR FULL CODE. SPOKE FRANKLY WITH ABOUT PATIENT'S POOR PROGNOSIS AND THAT CPR WOULD MOST LIKELY BE FUTILE AT THIS POINT, SHE INDICATED THAT THE DECISION TO INCLUDE CPR AGAIN WAS TO HELP THEIR FAMILY FEEL THOUGH EVERY EFFORT WAS MADE TO PRESERVE LIFE AND AVOID ANY REGRET OR CONFLICT ABOUT THE PATIENT PASSING BETWEEN FAMILY MEMBERS.
--- NOTE | 2021-08-16 04:50 | NUR ---
SUMMARY OF EVENTS. CODE BLUE INITIATED AT APPROXIMATELY 0318, SEE CODE SHEET FOR DETAILS. ROSC ACHIEVED WITH CPR AND TWO SHOCKS. PATIENT'S DAUGHTER PRESENT OUTSIDE OF ROOM AND SPOKE WITH DR. BAHENA DURING EVENT. DECISION MADE NOT TO USE CHEST COMPRESSIONS/SHOCK AGAIN IN THE EVENT THE PATIENT CODED AGAIN. PATIENT'S JOINED DAUGHTER AT BEDSIDE AND DECIDED TO EXTUBATE AND DISCONTINUE CARE AT APPROXIMATELY 0415. PT EXTUBATED AND IV PUMPS PUT ON STANDBY AT 0425, TIME OF NOTED AT 0437. ALL PERSONAL BELONGINGS GIVEN TO FAMILY PRIOR TO DEPARTURE.
--- NOTE | 2021-08-16 06:08 | NUR ---
BELONGINGS. DENTURES SENT WITH PATIENT TO HOME, FAMILY INFORMED.
[2021-08-16 10:11] LABS: HBSAG SCREEN Negative (Negative); HCV AB <0.1 (0.0-0.9); HEP A AB, IGM Negative (Negative); HEP B CORE AB, IGM Negative (Negative)
== END 2021-08-16 04:37 | DRG 682 ==
LOC: ER 11:07 → ICUW 14:58
PROVIDERS: Internal Medicine Critical Care Medicine; Internal Medicine Nephrology; Pharmacist; Student in an Organized Health Care Education/Training Program; ADMIT Internal Medicine
PROC: 0BH18EZ Insertion of Endotracheal Airway into Trachea, Via Natural or Artificial Opening Endoscopic (ICD-10-PCS; principal; 2021-08-13)
PROC: 5A1945Z Respiratory Ventilation, 24-96 Consecutive Hours (ICD-10-PCS; 2021-08-13)
PROC: 3E033XZ Introduction of Vasopressor into Peripheral Vein, Percutaneous Approach (ICD-10-PCS; 2021-08-13)
PROC: 5A12012 Performance of Cardiac Output, Single, Manual (ICD-10-PCS; 2021-08-13)
PROC: 5A1D70Z Performance of Urinary Filtration, Intermittent, Less than 6 Hours Per Day (ICD-10-PCS; 2021-08-13)
PROC: 3E03329 Introduction of Other Anti-infective into Peripheral Vein, Percutaneous Approach (ICD-10-PCS; 2021-08-13)
PROC: 06HY33Z Insertion of Infusion Device into Lower Vein, Percutaneous Approach (ICD-10-PCS; 2021-08-14)
DX: N17.9 Acute kidney failure, unspecified (principal); E11.10 Type 2 diabetes mellitus with ketoacidosis without coma; G40.909 Epilepsy, unspecified, not intractable, without status epilepticus; Z20.822 Contact with and (suspected) exposure to COVID-19; E78.5 Hyperlipidemia, unspecified; F03.90 Unspecified dementia, unspecified severity, without behavioral disturbance, psychotic disturbance, mood disturbance, and anxiety; I46.8 Cardiac arrest due to other underlying condition; Z66 Do not resuscitate; Z79.899 Other long term (current) drug therapy; Z88.8 Allergy status to other drugs, medicaments and biological substances; Z79.82 Long term (current) use of aspirin; Z79.84 Long term (current) use of oral hypoglycemic drugs; F43.10 Post-traumatic stress disorder, unspecified; F41.9 Anxiety disorder, unspecified; M79.7 Fibromyalgia; Z98.890 Other specified postprocedural states; R57.1 Hypovolemic shock; E87.5 Hyperkalemia; E87.6 Hypokalemia
CPT/HCPCS: 0241U; 31500; 36415; 36556; 51702; 70450; 71045; 71260; 72125; 74177; 80048; 80053; 80069; 80074; 80202; 81001; 82010; 82803; 82947; 83605; 83690; 83735; 83930; 84100; 84145; 84702; 85025; 85610; 85730; 86317; 87040; 87507; 92950; 93005; 93010; 94002; 94003; 96361; 96374; 96375; 99285-25; C1751; C1752; C9113; G0480; J0171; J0692; J1720; J1815; J1953; J2704; J3370; J3475; J3480; J7030; J7040; J7050; J7060; J7070; J7120; P9046; Q9967